=== PATIENT | male | born 1980 | race Caucasian/White ===

== ENCOUNTER → 2017-03-13 | Outpatient (CLI) | payer OTHER ==
[2017-03-14 07:24] LABS: ALBUMIN 3.7 g/dL (3.4-5.0); CALCIUM 8.5 mg/dL (8.5-10.1); GFR 83.2; POTASSIUM 3.8 mmol/L (3.5-5.1); TOTAL BILIRUBIN 0.4 mg/dL (0.2-1.0); TOTAL PROTEIN 7.5 g/dL (6.4-8.2)
[2017-03-14 07:25] LABS: CHOLESTEROL/HDL RATIO 6.9; HEMATOCRIT 41.5 % (39.0-53.0); HEMOGLOBIN 14.2 g/dL (13.0-17.5); MEAN CORPUSCULAR VOLUME 86 fL (79-100); RED BLOOD COUNT 4.83 x10^6/uL (4.30-5.70)
[2017-03-14 07:26] LABS: BASO % 0 % (0-3); EOS % 3 % (0-3); LYMPH # 1.9 x10^3/uL (1.0-4.8); LYMPH % 27 % (24-48); MEAN CORPUSCULAR HEMOGLOBIN 29 pg (25-35); MEAN CORPUSCULAR HGB CONC 34 g/dL (31-37); MONO % 11 % (0-9); NEUT % 59 % (31-73); PLATELET COUNT 193 x10^3/uL (140-400); RED CELL DISTRIBUTION WIDTH 13.3 % (11.5-14.5)
[2017-03-14 07:39] LABS: FREE T4 0.99 ng/dL (0.76-1.46)
== END | disposition home or self-care (01) ==
LOC: LAB 07:13
PROVIDERS: ATTEND Physician Assistant
DX: G44.209 Tension-type headache, unspecified, not intractable (principal); J30.1 Allergic rhinitis due to pollen; F41.1 Generalized anxiety disorder; E78.2 Mixed hyperlipidemia
CPT/HCPCS: 36415; 80053; 80061; 84439; 84443; 85027

== ENCOUNTER → 2017-09-07 | Outpatient (CLI) | payer OTHER ==
--- NOTE | 2017-09-07 14:47 | RAD ---
Indication: Back strain. Technique: Lumbosacral spine radiographs contain 5 images. No comparison is available. Findings: There is no fracture or dislocation. Vertebral body height is maintained. Mild endplate spurring is most notable at L4-L5. There is no narrowing of the interspace. Impression: Minimal degenerative changes at L4-L5.
== END | disposition home or self-care (01) ==
LOC: RAD 10:20
DX: S39.012A Strain of muscle, fascia and tendon of lower back, initial encounter (principal); M47.896 Other spondylosis, lumbar region; X58.XXXA Exposure to other specified factors, initial encounter; Y93.89 Activity, other specified; Y92.89 Other specified places as the place of occurrence of the external cause; Y99.8 Other external cause status
CPT/HCPCS: 72110

== ENCOUNTER → 2018-01-25 | Outpatient (CLI) | payer OTHER | END | disposition home or self-care (01) | LOC: US 09:38 | DX: K76.0 Fatty (change of) liver, not elsewhere classified (principal); R16.0 Hepatomegaly, not elsewhere classified | CPT/HCPCS: 76705 ==

== ENCOUNTER → 2018-02-01 | Outpatient (CLI) | payer OTHER ==
[~2018-02-01] MED LIST: REGADENOSON 0.4 MG/5 ML DISP.SYRIN. IV
[2018-02-01] MEDS: NORMAL SALINE IV (10:15)
[2018-02-01] MEDS: SINCALIDE IV (10:15)
== END | disposition home or self-care (01) ==
LOC: NM 09:04
DX: R10.11 Right upper quadrant pain (principal)
CPT/HCPCS: 78226; 96374; 96375; A9537; J2805

== ENCOUNTER → 2018-05-18 | Outpatient (CLI) | payer OTHER ==
[~2018-05-18] MED LIST changes: +GLUC-142 PO; +KRIL1CAP5 PO; +OMEP20TA63 PO; -REGADENOSON 0.4 MG/5 ML DISP.SYRIN. IV; +SIMV20TA3 PO; +VENL75CA PO
[2018-05-18 09:58] LABS: BASO # 0.1 x10^3/uL (0.0-0.2); BASO % 1 % (0-3); EOS # 0.3 x10^3/uL (0.0-0.7); EOS % 3 % (0-3); HEMOGLOBIN 14.7 g/dL (13.0-17.5); LYMPH # 2.3 x10^3/uL (1.0-4.8); LYMPH % 22 % (24-48); MEAN CORPUSCULAR HEMOGLOBIN 30 pg (25-35); MEAN CORPUSCULAR HGB CONC 34 g/dL (31-37); MEAN CORPUSCULAR VOLUME 88 fL (79-100); MONO # 0.8 x10^3/uL (0.0-1.1); MONO % 8 % (0-9); NEUT # 6.9 x10^3uL (1.8-7.7); NEUT % 67 % (31-73); PLATELET COUNT 246 x10^3/uL (140-400); RED BLOOD COUNT 4.91 x10^6/uL (4.30-5.70); RED CELL DISTRIBUTION WIDTH 13.5 % (11.5-14.5); WHITE BLOOD COUNT 10.4 x10^3/uL (4.0-11.0)
[2018-05-18 10:15] LABS: CALCIUM 9.1 mg/dL (8.5-10.1); GFR 82.8; POTASSIUM 4.2 mmol/L (3.5-5.1); TOTAL BILIRUBIN 0.4 mg/dL (0.2-1.0)
[2018-05-18 10:16] LABS: CHOLESTEROL/HDL RATIO 6.4
[2018-05-18 10:21] LABS: FREE T4 0.95 ng/dL (0.76-1.46); THYROID STIM HORMONE (TSH) 2.441 uIU/mL (0.358-3.74)
== END | disposition home or self-care (01) ==
LOC: RAD 09:23
PROVIDERS: ATTEND Physician Assistant Medical
DX: G47.33 Obstructive sleep apnea (adult) (pediatric) (principal); G47.19 Other hypersomnia; F41.1 Generalized anxiety disorder; E78.2 Mixed hyperlipidemia
CPT/HCPCS: 36415; 80053; 80061; 84439; 84443; 85025

== ENCOUNTER → 2018-10-23 | Outpatient (CLI) | payer OTHER ==
--- NOTE | 2018-10-25 09:29 | SLEEP ---
DATE OF STUDY: 10/23/2018 HOME SLEEP STUDY ATTENDING PHYSICIAN: Dr. Angela Valenzuela. The patient is 38 years old who weighs 400 pounds with a BMI of 52. The patient's [place] score was 18. The patient underwent home sleep study performed by [facility]. Total recording time was 460 minutes. During the night study, the patient had 819 obstructive apneas, no central apneas, 1 mixed apnea and 22 hypopneas. The patient's apnea-hypopnea index was 147 per hour. Nocturnal oximetry study revealed an average oxygen saturation of 86%, the lowest of 63%; 119 minutes were spent in oxygen saturation less than 90% and another 129 minutes with saturation less than 85% and 50 minutes with saturation less than 80%. Mean heart rate was 77 beats per minute, with a max of 145 beats per minute recorded. IMPRESSION: 1. Severe sleep apnea-hypopnea syndrome with an apnea-hypopnea index of 147 per hour. 2. Severe nocturnal hypoxia secondary to obstructive sleep apnea. RECOMMENDATIONS: 1. The patient should return for in-lab CPAP titration study. 2. Once optimal CPAP pressure is achieved, then follow up in 4-6 weeks to assess compliance with CPAP and to document clinical improvement. 3. Weight loss is strongly advised. 4. Avoid HEEL PADDER depressants. 5. Caution regarding driving until symptoms of sleep apnea resolve with the above recommendations. TRA SANCHEZ MD DR: AMY/alan JOB#: [id number] / [id number] ANGELA Lechuga MD
== END | disposition home or self-care (01) ==
LOC: RT 09:57
PROVIDERS: ATTEND Internal Medicine Critical Care Medicine
DX: G47.33 Obstructive sleep apnea (adult) (pediatric) (principal); G47.34 Idiopathic sleep related nonobstructive alveolar hypoventilation
CPT/HCPCS: G0399

== ENCOUNTER → 2018-12-04 | Outpatient (CLI) | payer OTHER, BC ==
--- NOTE | 2018-12-05 15:10 | SLEEP ---
DATE OF STUDY: 12/04/2018 ATTENDING PHYSICIAN: Dr. Angela Valenzuela. The patient is 38-year-old who weighs 400 pounds with a BMI of 53. The patient's [place] score was 18. The patient had a home sleep study performed by [facility] and was found to have severe TATIANA at an AHI of 147 per hour. The patient also had severe nocturnal hypoxia secondary to obstructive sleep apnea. The patient was referred back for in-lab CPAP titration study. During the night study, the patient spent 413 minutes in bed and slept for 359 minutes with a sleep efficiency of 87%. Sleep latency was 28 minutes with a REM latency of 72 minutes. Overall, sleep architecture showed normal stage 1 and stage 2 sleep, and increased N3 sleep and increased REM sleep, which was 33% of the total sleep time. EKG monitoring revealed normal sinus rhythm, average heart rate was 89 beats per minute. No arrhythmias observed. PLMS were seen at index of 21 per hour and 1 per hour caused EEG arousals. The patient was started on CPAP at 5 cm water; however, he was unable to tolerate lower pressure. CPAP was initiated at 9 cm water and titrated up to 20 cm of water. Due to persistent respiratory events, he was switched to BiPAP at 20/12 and at the final pressure of 26/18, he slept for 60 minutes. The patient's AHI was reduced to 0 per hour. The patient had supine sleep throughout and also REM sleep observed. The patient's AHI was 0 per hour. Oxygen saturation remained above 92%. The patient used a small size full face mask. IMPRESSION: 1. Severe sleep apnea diagnosed by home sleep study. 2. [id number] PLMS without any significant EEG arousals. This does not need to be treated. RECOMMENDATIONS: 1. BiPAP at 26/18 should be used on a nightly basis. It completely eliminated the patient's sleep apnea. 2. Follow up in 4-6 weeks to assess compliance and to document clinical improvement. 3. Weight loss is strongly advised. 4. Avoid ICEBOX MAN depressants. 5. Caution regarding driving until symptoms of sleep apnea resolve with the use of BiPAP. TRA SANCHEZ MD DR: AMY/alan JOB#: [id number] / [id number] ANGELA Lechuga MD
== END | disposition home or self-care (01) ==
LOC: RT 18:59
PROVIDERS: ATTEND Internal Medicine Critical Care Medicine
DX: G47.33 Obstructive sleep apnea (adult) (pediatric) (principal); G47.61 Periodic limb movement disorder
CPT/HCPCS: 95811